=== PATIENT | female | born 1950 | race Caucasian/White ===

== ENCOUNTER → 2017-09-21 | Outpatient (CLI) | payer MEDICARE ==
[~2017-09-21] MED LIST: AMBIEN 10MG10 MG PO; AMBIEN 5MG TABLE5 MG PO; ARAVA 20MG TABL20 MG PO; ASPIRIN 32325 MG/TAB PO; ASPIRIN 81M81 MG/TA2 PO; B-121000 MCG PO; B12; COLACE 100100 MG/CAP PO; ESTRACE2 MG PO; FENTANYL 12MCG TD; FLAXSEED PO; FOLIC ACID0.8 MG PO; HYZAAR 50-12.1 UDTAB PO; IPRATROPIUM BROM3 M1 IH; LEVAQUIN 750MG750 M1 PO; LEXAPRO 10MG10 MG PO; LIQUID CALCIUM1 SG3 PO; MILLIPRED5 MG PO; MULTI VITAMINS1 TAB PO; MYRBETR25MG PO; NAMENDA XR 28MG PO; NATURAL FLAX1000 MG PO; NORCO 325 MG-51 TAB PO; PREDNISONE 5MG5 MG PO; PRIL40 PO; PRILOTC; RAZADYNE 4MG (FO4 MG PO; RECLAST5 MG/100 M IV; STOOL SOFTENER100 M2 PO; SUDAFED30 MG PO; TESSALON PERLE200 MG PO; VIT D; VITAMIN C500 MG PO; VITAMIN D 50,1.25 MG PO; VITAMIN D31000 I1 PO; XARELTO10 MG PO; ZANTAC 150MG T150 MG PO; ZITHROMAX 250M250 MG PO; ZITHROMAX500 M2 PO; ZOMETA4 MG/100 M; [UNRECOGNIZED DRUG - OTHER]; folic acid; mvi
== END ==
LOC: MC.RAD 09:00
DX: Z12.31 Encounter for screening mammogram for malignant neoplasm of breast (principal)

== ENCOUNTER → 2018-04-02 | Outpatient (CLI) | payer MEDICARE | LOC: COL.RAD 07:23 | DX: M51.16 Intervertebral disc disorders with radiculopathy, lumbar region (principal); M48.061 Spinal stenosis, lumbar region without neurogenic claudication ==

== ENCOUNTER → 2018-04-17 | Outpatient (CLI) | payer MEDICARE | LOC: MHCPAIN 13:08 | DX: G89.29 Other chronic pain (principal); M47.817 Spondylosis without myelopathy or radiculopathy, lumbosacral region; M54.16 Radiculopathy, lumbar region; M53.3 Sacrococcygeal disorders, not elsewhere classified; M48.061 Spinal stenosis, lumbar region without neurogenic claudication | CPT/HCPCS: G0463 ==

== ENCOUNTER → 2018-06-12 | Outpatient (CLI) | payer MEDICARE | LOC: MHCPAIN 11:04 | DX: G89.29 Other chronic pain (principal); M47.817 Spondylosis without myelopathy or radiculopathy, lumbosacral region; M54.16 Radiculopathy, lumbar region; M53.3 Sacrococcygeal disorders, not elsewhere classified; M47.814 Spondylosis without myelopathy or radiculopathy, thoracic region | CPT/HCPCS: G0463 ==

== ENCOUNTER → 2018-06-14 | Outpatient (CLI) | payer MEDICARE | LOC: MHCPAIN 10:27 | DX: M47.817 Spondylosis without myelopathy or radiculopathy, lumbosacral region (principal); M54.16 Radiculopathy, lumbar region | CPT/HCPCS: J1040; J2250; J3010; Q9967 ==

== ENCOUNTER → 2018-06-25 | Outpatient (CLI) | payer MEDICARE | LOC: MHCPAIN 11:22 | DX: G89.29 Other chronic pain (principal); M47.817 Spondylosis without myelopathy or radiculopathy, lumbosacral region; M54.16 Radiculopathy, lumbar region; M53.3 Sacrococcygeal disorders, not elsewhere classified; M48.061 Spinal stenosis, lumbar region without neurogenic claudication | CPT/HCPCS: G0463 ==

== ENCOUNTER → 2018-08-07 | Outpatient (CLI) | payer MEDICARE | LOC: MHCPAIN 09:59 | DX: G89.29 Other chronic pain (principal); M47.817 Spondylosis without myelopathy or radiculopathy, lumbosacral region; M54.16 Radiculopathy, lumbar region; M53.3 Sacrococcygeal disorders, not elsewhere classified; M48.061 Spinal stenosis, lumbar region without neurogenic claudication | CPT/HCPCS: G0463 ==

== ENCOUNTER 2018-08-14 13:30 | Outpatient (RCR) | payer MEDICARE | END 2018-08-22 09:47 | disposition home or self-care (01) | LOC: WSPT 13:30 | DX: M51.16 Intervertebral disc disorders with radiculopathy, lumbar region (principal); M41.56 Other secondary scoliosis, lumbar region; M48.062 Spinal stenosis, lumbar region with neurogenic claudication; M47.816 Spondylosis without myelopathy or radiculopathy, lumbar region; M43.16 Spondylolisthesis, lumbar region; Z79.891 Long term (current) use of opiate analgesic; Z79.899 Other long term (current) drug therapy; F17.210 Nicotine dependence, cigarettes, uncomplicated | CPT/HCPCS: G8978-GP; G8979-GP ==

== ENCOUNTER → 2018-10-10 | Outpatient (CLI) | payer MEDICARE ==
[~2018-10-10] MED LIST changes: +FLOMAX 0.40.4 MG/CAP PO; +FORTEO250 MCG/ML; +HYSINGLA; +LYRICA 150MG C150 MG PO; +MACRODANTIN100 PO; +NORCO 325 MG-101 TAB PO; +OMNICEF 300MG300 MG PO; +PERCOCET 325 MG1 TA2 PO; +TOFRANIL 10MG T10 MG PO; +XELJANZ XR11 MG PO
== END ==
LOC: MHCPAIN 13:38
DX: G89.29 Other chronic pain (principal); M47.817 Spondylosis without myelopathy or radiculopathy, lumbosacral region; M54.16 Radiculopathy, lumbar region; M53.3 Sacrococcygeal disorders, not elsewhere classified
CPT/HCPCS: G0463

== ENCOUNTER 2018-11-20 19:11 | Inpatient (IN) | payer MEDICARE ==
[~2018-11-20] VITALS: Ht 160 cm; Wt 66.8 kg
[2018-11-20 20:13] LABS: BASO # 0.1 (0.0-0.2); BASO % 0.6 % (0.0-2.0); EOS # 0.1 (0.0-0.7); EOS % 1.1 % (0-4.0); GRAN # 10.1 (1.4-6.5); GRAN % 76.5 % (42.2-75.2); HEMATOCRIT 40.6 % (37.0-47.0); HEMOGLOBIN 12.8 g/dl (12.5-16.0); LYMPH # 1.1 (1.2-3.4); LYMPH % 8.3 % (20.0-51.0); MEAN CELL VOLUME 98 fl (80.0-100.0); MEAN CORPUSCULAR HEMOGLOBIN 31 pg (27.0-31.0); MEAN CORPUSCULAR HGB CONC 32 g/dl (33.0-37.0); MEAN PLATELET VOLUME 11.1 fl (7.4-10.4); MONO # 1.5 (0.1-0.6); MONO % 11.4 % (1.7-9.3); PLATELET COUNT 265 K/mm3 (130-400); RED BLOOD COUNT 4.16 M/mm3 (4.10-5.30); REDCELL DISTRIBUTION WIDTH-CV 16.5 % (11.5-14.5)
[2018-11-20 20:25] LABS: COLLECTION METHOD CATHETER
[2018-11-20 20:32] LABS: INR 1.2 (0.8-3.0)
[2018-11-20 20:59] LABS: MUCOUS Present /lpf; PH 5 (5-8); URINE APPEARANCE Hazy; URINE BACTERIA None Seen /hpf; URINE BILIRUBIN Negative (NEGATIVE); URINE BLOOD Negative (NEGATIVE); URINE COLOR Amber; URINE GLUCOSE Negative (NEGATIVE); URINE KETONE Trace (NEGATIVE); URINE LEUKOCYTE ESTERASE Negative (NEGATIVE); URINE NITRATE Negative (NEGATIVE); URINE PROTEIN(semi-quant) Negative (NEGATIVE); URINE RBC 0-2 /hpf
[2018-11-20 21:14] LABS: ALANINE AMINOTRANSFERASE 22 U/L (9-52); ALBUMIN 3.4 gm/dL (3.5-5.0); ALKALINE PHOSPHATASE 101 U/L (50-136); ANION GAP 4 mmol/L (7-16); AST,SGOT 19 U/L (15-37); BILIRUBIN,TOTAL 0.8 mg/dL (0.0-1.0); BLOOD UREA NITROGEN 12 mg/dL (7-17); CALCIUM 9.2 mg/dL (8.4-10.2); CARBON DIOXIDE 28 mmol/L (22-30); CHLORIDE 104 mmol/L (98-107); CREATININE, serum 0.66 mg/dL (0.52-1.25); GLUCOSE 117 mg/dL (74-106); SODIUM 136 mmol/L (137-145); TOTAL PROTEIN 6.6 gm/dL (6.4-8.2)
[2018-11-20 21:19] LABS: POTASSIUM 2.7 mmol/L (3.4-5.0)
[2018-11-20 21:32] LABS: TROPONIN-I < 0.012 ng/mL (0.000-0.035)
[2018-11-20] MEDS ORDERED: CYMBALTA 60MG60 MG PO (22:40)
[2018-11-20] MEDS ORDERED: FORTEO250 MCG/ML (22:41)
[2018-11-20] MEDS ORDERED: ARAVA 20MG TABL20 MG PO (22:41)
[2018-11-21 00:05] VITALS: BP 146/76; PULSE 104; TEMP 98.3
--- NOTE | 2018-11-21 00:08 | NUR ---
Patient arrived to medical floor at aproximately 2350.
--- NOTE | 2018-11-21 00:50 | NUR ---
Patient assessed at this time. Spouse is at bedside and helped answer all questions. Denies having SOB and dyspnea at this time. On oxygen at 2 L/min via NC. LS CTA. Respirations are even and unlabored. Heart with regular rate and rhythm. Bowel sounds active x 4. Alert and oriented with confusion. Forgetful. Does have diagnosis of dementia. Patient had cataract surgery on 11/20/18 to right eye. Pupils are round. Did not check for accomodation to light due to sensitivity of eyes. Has been wearing sunglasses. Has an eye patch that patient is supposed to wear, but is not keeping it on. No edema noted. Left leg is slightly bigger than right leg, but reports this is normal for patient.
[2018-11-21 03:09] VITALS: BP 152/62; PULSE 100; TEMP 99.9
[2018-11-21 07:25] LABS: HEMOGLOBIN 11.2 g/dl (12.5-16.0); MEAN CELL VOLUME 98 fl (80.0-100.0); MEAN CORPUSCULAR HEMOGLOBIN 31 pg (27.0-31.0); MEAN CORPUSCULAR HGB CONC 31 g/dl (33.0-37.0); PLATELET COUNT 242 K/mm3 (130-400); RED BLOOD COUNT 3.65 M/mm3 (4.10-5.30); REDCELL DISTRIBUTION WIDTH-CV 16.3 % (11.5-14.5)
[2018-11-21 07:26] LABS: HEMATOCRIT 35.9 % (37.0-47.0)
[2018-11-21 07:28] VITALS: BP 127/71; PULSE 114; TEMP 98.8
--- NOTE | 2018-11-21 07:28 | NUR ---
Patient has been assisted to the bathroom three times during the night. Bedside commode used with two assist with the use of gait belt. has remained at bedside throughout the night. Patient has been wearing her black glasses for optometry due to her pulling off her eyepatch that she is supposed to wear to right eye from cataract surgery. Patient continues on potassium protocol. In bed at this time. Oxygen on at 2 L/min via NC. Call light is within reach.
[2018-11-21 07:51] LABS: ALANINE AMINOTRANSFERASE 19 U/L (9-52); ALBUMIN 3.1 gm/dL (3.5-5.0); ALKALINE PHOSPHATASE 95 U/L (50-136); ANION GAP 2 mmol/L (7-16); AST,SGOT 27 U/L (15-37); BILIRUBIN,TOTAL 0.9 mg/dL (0.0-1.0); BLOOD UREA NITROGEN 10 mg/dL (7-17); CALCIUM 8.5 mg/dL (8.4-10.2); CARBON DIOXIDE 29 mmol/L (22-30); CHLORIDE 105 mmol/L (98-107); CREATININE, serum 0.48 mg/dL (0.52-1.25); GLUCOSE 107 mg/dL (74-106); POTASSIUM 4.1 mmol/L (3.4-5.0); SODIUM 136 mmol/L (137-145); TOTAL PROTEIN 6.4 gm/dL (6.4-8.2)
[2018-11-21 08:03] LABS: TROPONIN-I < 0.012 ng/mL (0.000-0.035)
[2018-11-21 09:42] LABS: BAND 19 % (0-10); LYMPHOCYTE 19 % (20.0-51.0); NEUTROPHILS 50 % (42.0-75.2)
[2018-11-21 09:43] LABS: ANISOCYTOSIS 1+; PLATELET ESTIMATE NORMAL (NORMAL)
--- NOTE | 2018-11-21 10:01 | NUR ---
Pt is awake and alert to self. She was unable to tell RN the date/year/president. She reorients easily. She is unable to rate pain on numeric scale but appears to be comfortable and in no distress. Pt takes all AM medications whole, in applesauce without difficulty. IVF are infusing without difficulty. at bedside. Bed alarm on.
[2018-11-21 11:39] VITALS: BP 113/67; PULSE 105; TEMP 98
--- NOTE | 2018-11-21 14:32 | NUR ---
SW and SW student attended clinical rounding and met with patient to discuss discharge planning. Patient lives with her [place] in [place]. Her PCP is Dr sandhu and she obtains her medications at [facility]. Patient has a DPOA on Chart and is Jehovahs witness which her wanted to make sure was noted. Patient plans on dc home with with no unmet dc needs. SW will continue to follow.
[2018-11-21 15:34] VITALS: BP 128/69; PULSE 88; TEMP 98.2
--- NOTE | 2018-11-21 18:05 | NUR ---
Pt has had an overall uneventful shift. Pt continues to deny pain, appears to be comfortable and not in any acute distress.
[2018-11-21 20:53] VITALS: BP 164/77; PULSE 103; TEMP 97.5
--- NOTE | 2018-11-21 21:45 | NUR ---
PT RESTING IN BED. ALERT AND ORIENTED TO SELF NOT PLACE OR SITUATION. PT WEARING POST PROCEDURE GLASSESS. NO PAIN. C/O SOA. SAT 95% ON 2L. NO NEEDS AT THIS TIME. AT BEDSIDE.
[2018-11-22] VITALS (7 sets, daily range): BP systolic 113–148; BP diastolic 71–99; PULSE 70–137; TEMP 97.5–98.9
--- NOTE | 2018-11-22 04:31 | NUR ---
pt had an uneventful night. slept most of the night with at bedside. K+3.9. on 2L o2 sat 95%. does not wear O2 at home. no pain. no needs at this time. call light in reach
[2018-11-22 06:27] LABS: HEMOGLOBIN 10.8 g/dl (12.5-16.0); MEAN CELL VOLUME 99 fl (80.0-100.0); MEAN CORPUSCULAR HEMOGLOBIN 31 pg (27.0-31.0); MEAN CORPUSCULAR HGB CONC 31 g/dl (33.0-37.0); MEAN PLATELET VOLUME 11.7 fl (7.4-10.4); PLATELET COUNT 246 K/mm3 (130-400); RED BLOOD COUNT 3.51 M/mm3 (4.10-5.30); REDCELL DISTRIBUTION WIDTH-CV 16.4 % (11.5-14.5)
[2018-11-22 06:29] LABS: INR 1.5 (0.8-3.0); PROTHROMBIN TIME 16.7 SECONDS (9.7-12.8)
[2018-11-22 06:32] LABS: HEMATOCRIT 34.8 % (37.0-47.0)
[2018-11-22 06:44] LABS: CALCIUM 8.6 mg/dL (8.4-10.2); CREATININE, serum 0.54 mg/dL (0.52-1.25); MAGNESIUM 2.1 mg/dL (1.6-2.3); POTASSIUM 3.7 mmol/L (3.4-5.0)
[2018-11-22 07:13] LABS: ANISOCYTOSIS 1+; BAND 28 % (0-10); EOSINOPHIL 2 % (0-4); LYMPHOCYTE 22 % (20.0-51.0); NEUTROPHILS 42 % (42.0-75.2); PLATELET ESTIMATE NORMAL (NORMAL)
--- NOTE | 2018-11-22 07:15 | NUR ---
Report recieved from KAROLINE Storey Pt bent over in bed rocking complaining of nausea, denies pain. Pt agreeable to ordering breakfast "that will probably help" with the nausea. Pt experiencing photophobia - wearing large sun shades in the room, requesting eye drops (provided). at bedside helping pt with items in room and ordering breakfast. Pt appears to be in less distress after introductions and assessment.
--- NOTE | 2018-11-22 07:29 | NUR ---
report given to KAROLINE Estrella. pt reports no needs at this time.
--- NOTE | 2018-11-22 23:44 | NUR ---
Completed medication administration with apple sauce and assessment; PT tolerated all cares well; PT denied further needs or discomforts at time of assessment; Lungs have diminished bilateral bases with RLL crackles; Irregular HR; CXR negative for irregular findings; Continued post cataract GTT x3 (in room); No further needs at time of exit; call light placed within reach; Will continue to monitor; spouse in room for night. CDA
--- NOTE | 2018-11-23 02:39 | NUR ---
PT resting well in bed with resting in the recliner at the end of the bed; No further needs assessed at this time during rounds; Continues to rest easy on 2L NC and no need for further pain management at this time; Will continue to monitor. CDA
[2018-11-23 04:16] VITALS: BP 174/84; PULSE 113; TEMP 98.8
--- NOTE | 2018-11-23 05:03 | NUR ---
Spoke with YVONNE Cook about reported acute changes and VS; no new orders or medications at this time. Will continue to monitor. CDA
[2018-11-23 06:11] LABS: BASO % 0.3 % (0.0-2.0); EOS # 0.2 (0.0-0.7); EOS % 1.5 % (0-4.0); GRAN # 8.8 (1.4-6.5); GRAN % 74.8 % (42.2-75.2); HEMOGLOBIN 10.4 g/dl (12.5-16.0); LYMPH # 1.3 (1.2-3.4); LYMPH % 11.1 % (20.0-51.0); MEAN CELL VOLUME 100 fl (80.0-100.0); MEAN CORPUSCULAR HEMOGLOBIN 31 pg (27.0-31.0); MEAN CORPUSCULAR HGB CONC 31 g/dl (33.0-37.0); MONO # 1.4 (0.1-0.6); MONO % 11.5 % (1.7-9.3); PLATELET COUNT 234 K/mm3 (130-400); RED BLOOD COUNT 3.37 M/mm3 (4.10-5.30); REDCELL DISTRIBUTION WIDTH-CV 16.4 % (11.5-14.5)
[2018-11-23 06:13] LABS: INR 2.5 (0.8-3.0); PROTHROMBIN TIME 28.8 SECONDS (9.7-12.8)
[2018-11-23 06:21] LABS: CALCIUM 8.6 mg/dL (8.4-10.2); CREATININE, serum 0.55 mg/dL (0.52-1.25); POTASSIUM 3.7 mmol/L (3.4-5.0)
[2018-11-23 06:22] LABS: HEMATOCRIT 33.7 % (37.0-47.0)
--- NOTE | 2018-11-23 07:07 | NUR ---
Report given to KAROLINE Philip. CDA
[2018-11-23 07:21] VITALS: BP 126/80; PULSE 114; TEMP 98.4
--- NOTE | 2018-11-23 08:00 | NUR ---
PT ALERT AND ORIENTED TO SELF AND LOCATION. PT SLIGHLTY CONFUSED WHEN ASKED COMPLICATED QUESTIONS. TYPICALLY ANSWERS FOR . PT ABLE TO FOLLOW COMMANDS WITHOUT DIFFICULTY. PT NEEDS REDIRECTION AT TIMES ESPECIALLY WITH AMBULATION.
--- NOTE | 2018-11-23 08:00 | NUR ---
PT DOES NOT TYPICALLY WEAR O2 AT HOME. ATTEMPTED TO WEAN PT'S O2 DOWN TO 1L BUT O2 SAT DECREASED TO 90-91%. ORDERS STATE TO MAINTAIN O2 SAT >92%. PT RESUMED ON 2L NC. WILL CONTINUE TO MONITOR.
--- NOTE | 2018-11-23 09:00 | NUR ---
ASSISTED PATIENT TO RECLINER CHAIR WITH 2 ASSIST AND GAIT BELT. 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 PT VERY WEAK AND NEEDS ASSISTANCE WITH DIRECTION.
[2018-11-23 11:59] VITALS: BP 123/66; PULSE 101; TEMP 98.4
--- NOTE | 2018-11-23 13:49 | NUR ---
SW met with patient and . Patient is very weak and will need shelter. Patient has been to [facility] multiple times in the past and would like to go there. Choice form obtained for #1 [facility] and #2 [facility]. Referrals sent to both. patient to discharge tomorrow. SW will continue to follow.
--- NOTE | 2018-11-23 14:01 | NUR ---
PT RESTING IN RECLINER CHAIR WITH AT BEDSIDE. PT DENIES ANY NEEDS AT THIS TIME.
--- NOTE | 2018-11-23 15:32 | NUR ---
Bridget, at [facility], reports that they can accept the patient for a skilled stay. SW to inform the patient's and continue to follow.
--- NOTE | 2018-11-23 15:49 | NUR ---
PT RESTING IN CHAIR. FAMILY AT BEDSIDE. PT DENIES ANY NEEDS.
--- NOTE | 2018-11-23 16:23 | NUR ---
Juvencio, at [facility], reports that they declined the patient.
[2018-11-23 16:28] VITALS: BP 122/67; PULSE 91; TEMP 96.9
--- NOTE | 2018-11-23 16:35 | NUR ---
RECEIVED REPORT FROM KAROLINE FAUSTIN.PATIENT SITTING UP IN RECLINER.FAMILY AT BEDSIDE.PATIENT HAS GLASSES ON FROM PREVIOUS CATARACTS SURGERY.DENIES ANY NEEDS AT THIS TIME.CALL LIGHT IN REACH.
--- NOTE | 2018-11-23 18:19 | NUR ---
PT SITTING UP IN RECLINER.ALL EYE DROPS GIVEN.CONTINUES TO WEAR DARK SHADE GLASSES POST CATARACTS.REQUESTED PERCOCET FOR PAIN.OXYGEN AT 2L/NC.PT IS VERY WEAK,REQUIRES ASSIST X2 WITH TRANSFERS.WILL CONTINUE TO MONITOR.
[2018-11-23 19:26] VITALS: BP 119/63; PULSE 99; TEMP 97.5
--- NOTE | 2018-11-23 20:59 | NUR ---
Pt in bed resting, no C/O pain at this time, shift assessments complete, left Pt call light in reach, bed in lowest position.
[2018-11-24 00:31] VITALS: BP 135/81; PULSE 78; TEMP 97.5
[2018-11-24 04:20] VITALS: BP 147/76; PULSE 82; TEMP 97.4
--- NOTE | 2018-11-24 05:43 | NUR ---
Pt slept well during the night, no C/O pain. VS have remained stable.
--- NOTE | 2018-11-24 07:00 | NUR ---
received report from KAROLINE Lezama.patient laying in bed with at bedside.
[2018-11-24 07:46] VITALS: BP 159/85; PULSE 93; TEMP 97.8
[2018-11-24 08:36] LABS: BASO % 0.3 % (0.0-2.0); EOS # 0.2 (0.0-0.7); EOS % 1.6 % (0-4.0); GRAN # 7.6 (1.4-6.5); GRAN % 73.4 % (42.2-75.2); LYMPH # 1.3 (1.2-3.4); LYMPH % 12.1 % (20.0-51.0); MEAN CELL VOLUME 99 fl (80.0-100.0); MEAN CORPUSCULAR HGB CONC 31 g/dl (33.0-37.0); MEAN PLATELET VOLUME 11.4 fl (7.4-10.4); MONO # 1.3 (0.1-0.6); PLATELET COUNT 271 K/mm3 (130-400); RED BLOOD COUNT 3.21 M/mm3 (4.10-5.30); REDCELL DISTRIBUTION WIDTH-CV 16.1 % (11.5-14.5)
[2018-11-24 08:42] LABS: HEMATOCRIT 31.9 % (37.0-47.0); HEMOGLOBIN 9.8 g/dl (12.5-16.0); MEAN CORPUSCULAR HEMOGLOBIN 31 pg (27.0-31.0)
[2018-11-24 08:43] LABS: CALCIUM 8.5 mg/dL (8.4-10.2); CREATININE, serum 0.51 mg/dL (0.52-1.25); POTASSIUM 3.3 mmol/L (3.4-5.0)
[2018-11-24 09:02] LABS: INR 5.5 (0.8-3.0); PROTHROMBIN TIME 63.2 SECONDS (9.7-12.8)
--- NOTE | 2018-11-24 09:09 | NUR ---
critical labs of INR 5.5 and PT 63.2 called to LAZARA David.
--- NOTE | 2018-11-24 09:15 | NUR ---
Assessment complete.patient awake,oriented to self and place.prn percocet given for c/o generalised pain which she rates as a 8/10.all other meds given.oxygen at 2l/NC and sats at 90%.will continue to monitor.call light in reach
[2018-11-24 12:13] VITALS: BP 122/64; PULSE 97; TEMP 98.2
--- NOTE | 2018-11-24 13:57 | NUR ---
PT SITTING UP EATING LUNCH.TOLERATES MEDS WELL.NO NEEDS VOICED.
[2018-11-24 14:49] VITALS: BP 121/73; PULSE 111; TEMP 97.9
--- NOTE | 2018-11-24 18:29 | NUR ---
PT RESTING IN BED AT THIS TIME.DAUGHTER AT BEDSIDE.PERCOCET GIVEN FOR PAIN.PT NOW ON ONE EYE DROP FOR PRIOR CATARACTS SURGERY.INTAKE HAS IMPROVED.PATIENT AND UPDATED ON PLAN TO RECHECK INR TOMORROW.WILL CONTINUE TO MONITOR.CALL LIGHT IN REACH
--- NOTE | 2018-11-24 19:16 | NUR ---
REPORT GIVEN TO KAROLINE GLASER.
[2018-11-24 19:24] VITALS: BP 140/78; PULSE 108; TEMP 98.3
--- NOTE | 2018-11-24 22:00 | NUR ---
PT HAD BEEN UP TO THE BEDSIDE COMMODE X2 TO VOID AT THIS TIME. URINE HAS A STONG SMELL TO IT. URGENCY NOTED WELL. PREVIOUS UA WAS OBTIANED UPON ADMISSION. NO C/O BURING WITH URINATION. PT DOES HAVE C/O PAIN WITH TRANSFURING AND PRN PAIN MED GIVEN ORDERED. C/O PAIN IN RT LEG, AND BACK. NO OTHER ISSUES OR CONSERNS VOICED AT THIS TIME.
--- NOTE | 2018-11-24 23:30 | NUR ---
PT REMAINS AT BEDSIDE. REPORTS TO THIS NURSE THAT PT HAD TAKEN OFF O2 AND WOULDNT PUT IT BACK ON THIS NURES OBTAINED O2 SAT OF 90% RA AT THIS TIME. WILL REATTEMPT 02 AT A LATER HOUR.
[2018-11-25] VITALS (7 sets, daily range): BP systolic 129–145; BP diastolic 66–121; PULSE 99–128; TEMP 97.3–98.4
--- NOTE | 2018-11-25 04:28 | NUR ---
PT WAS SITTING FORWARD IN BED, PT REQUESTED FOR HER TO GET PAIN MEDICATION. PT STATED THAT HE LEG/ HIP HURT AT THIS TIME. PAIN MED GIVEN.
--- NOTE | 2018-11-25 04:30 | NUR ---
PT REMAINING RESTLESS, WEARING O2 AT THIS TIME AND SATS BACK UP TO 95% ON 1L.
[2018-11-25 09:04] LABS: MEAN CELL VOLUME 99 fl (80.0-100.0); MEAN CORPUSCULAR HGB CONC 31 g/dl (33.0-37.0); MEAN PLATELET VOLUME 11.6 fl (7.4-10.4); PLATELET COUNT 308 K/mm3 (130-400); RED BLOOD COUNT 2.91 M/mm3 (4.10-5.30); REDCELL DISTRIBUTION WIDTH-CV 16.3 % (11.5-14.5)
[2018-11-25 09:13] LABS: HEMATOCRIT 28.9 % (37.0-47.0); HEMOGLOBIN 8.9 g/dl (12.5-16.0); MEAN CORPUSCULAR HEMOGLOBIN 31 pg (27.0-31.0)
[2018-11-25 09:19] LABS: INR 6.3 (0.8-3.0); PROTHROMBIN TIME 71.3 SECONDS (9.7-12.8)
--- NOTE | 2018-11-25 09:32 | NUR ---
Assessmnet complete.patient awake,oriented to self.c/o of generalised pain and mostly to right side.prn oxycodone given.all meds given.oxygen at 2l/nc.HR in 110s.INT patent. at bedside.denies any needs at this time.
--- NOTE | 2018-11-25 09:37 | NUR ---
INR was 6.3. notified.
[2018-11-25 09:49] LABS: CALCIUM 8.9 mg/dL (8.4-10.2); CREATININE, serum 0.61 mg/dL (0.52-1.25); POTASSIUM 3.3 mmol/L (3.4-5.0)
[2018-11-25 13:42] LABS: ANISOCYTOSIS 1+; BAND 2 % (0-10); HYPOCHROMIA 1+; LYMPHOCYTE 19 % (20.0-51.0); NEUTROPHILS 67 % (42.0-75.2); PLATELET ESTIMATE NORMAL (NORMAL)
--- NOTE | 2018-11-25 18:15 | NUR ---
PATIENT RESTING IN BED.ALL MEDS GIVEN.CONTINUES TO C/O GENERALIZED PAIN.PRN PERCOCET GIVEN.PATIENT DENIES ANY NEEDS AT THIS TIME.CALL LIGHT IN REACH
--- NOTE | 2018-11-25 18:28 | NUR ---
Pt remains on oxygen at 2l/nc.sats above 90%.VSS.pt is now on scheduled potassium effer.education provided on this and encoraged patient to increase intake of fluids.no needs voiced.call light in reach
--- NOTE | 2018-11-25 19:01 | NUR ---
report given to KAROLINE Lezama.
--- NOTE | 2018-11-25 20:45 | NUR ---
Pt resting in bed napping, easily aroused from sleep, shows signs of pain, medication administered, family in room. Shift assessment complete, left Pt call light in reach, bed in lowest position.
--- NOTE | 2018-11-26 05:11 | NUR ---
Pt slept well during the night, family was in room with Pt overnight, VS have remained stable, Pt did have some C/O pain early in the shift but has been sleeping since given medication.
[2018-11-26 05:12] VITALS: BP 146/81; PULSE 115
[2018-11-26 06:30] LABS: HEMATOCRIT 24.6 % (37.0-47.0); HEMOGLOBIN 7.5 g/dl (12.5-16.0)
[2018-11-26 07:18] LABS: INR 7.9 (0.8-3.0); PROTHROMBIN TIME 90.5 SECONDS (9.7-12.8)
[2018-11-26 07:49] LABS: IRON,SERUM 71 ug/dL (35-150)
[2018-11-26 07:58] LABS: TOTAL IRON BINDING CAPACITY 264 ug/dL (265-497)
[2018-11-26 08:25] LABS: FERRITIN 474 ng/mL (11-264)
--- NOTE | 2018-11-26 09:22 | NUR ---
Patient resting in bed with at bedside. Reported to Joann Sutton APRN notified of PT/INR elevation. New orders recieved. Noted that patient is very pale in color this AM. reports that she is quieter and less responsive this AM. She is alert to self but unable to tell this nurse time and place. Patient checked for excessive bruising with none noted. Per there has been no bloody stools or urine that was noted. Will continue to monitor for any changes in patient status
[2018-11-26 09:25] VITALS: BP 111/60; PULSE 111; TEMP 97.4
--- NOTE | 2018-11-26 11:00 | NUR ---
Noted patient to have a black/foul smelling stool at this time. YVONNE David notified of this finding. New order for Stool for Occult blood. Stool collected and sent to lab at this time. Patient denies any pain/discomfort. AM cares done and up to chair. at bedside
[2018-11-26 11:41] VITALS: BP 132/69; PULSE 110; TEMP 99.4
[2018-11-26 14:40] LABS: FOLATE (FOLIC ACID) 2.8 ng/mL (7.0-31.4)
--- NOTE | 2018-11-26 15:15 | NUR ---
Call placed to Dr. Murillo regarding consult secondary to + stool for occult blood. Patient denies any needs at this time.
--- NOTE | 2018-11-26 16:00 | NUR ---
Patient c/o pain in bilateral lower extremities. Percocet given for c/o discomfort. Patient repositioned in bed. No other needs at this time. Patient has yet to void this shift. Offered to take patient to the bathroom. reports she had a large void this morning before shift change. Will continue to monitor
--- NOTE | 2018-11-26 16:31 | NUR ---
motion picture set worker attended clinical rounds and met with patient and spouse to confirm discharge plan. Patient and spouse are agreeable with discharge plan to skilled care at [facility] upon discharge. Worker faxed clinical updates to [facility].
[2018-11-26 16:54] VITALS: BP 109/62; PULSE 105; TEMP 97.9
--- NOTE | 2018-11-26 18:55 | NUR ---
Family in room. Patient denies any needs at this time. Supper ordered. Still has not voided will pass onto next shift
--- NOTE | 2018-11-26 21:00 | NUR ---
PT HAD A LARGE BM THIS HS AND VOID. BM WAS BLACK WITH A GREEN TING TO IT. PT HAS NOTED PALLOR IN APPERANCE. PT HAS ONLY VOIDED ONCE THIS DAY. PT HAD C/O PAIN TO RT LOWER EXTREM WITH TRANSFER, ADMINSTERED PRN PAIN MED ALONG WITH HS MEDS. NO OTHER ISSUES OR CONSERNS VOICED.
[2018-11-26 21:42] VITALS: BP 104/63; PULSE 95; TEMP 98.8
[2018-11-27] VITALS (11 sets, daily range): BP systolic 11–134; BP diastolic 46–69; PULSE 64–102; TEMP 97.7–98.9
--- NOTE | 2018-11-27 06:00 | NUR ---
PT APPEARED TO HAVE SLEPT WELL OVER NOC. NO ISSUES OR CONSERNS VOICED OVER NOC. NO FURTHER C/O PAIN. REMAINED AT BEDSIDE.
[2018-11-27 08:12] LABS: HEMATOCRIT 19.9 % (37.0-47.0); HEMOGLOBIN 6.2 g/dl (12.5-16.0)
[2018-11-27 08:32] LABS: INR 1.5 (0.8-3.0); PROTHROMBIN TIME 16.8 SECONDS (9.7-12.8)
--- NOTE | 2018-11-27 09:24 | NUR ---
SW attended clinical rounds. Patient will get an EGD today. SW then met with patient and . Patient's confirmed with SW that the discharge plan is to go to [facility]. SW will continue to follow.
--- NOTE | 2018-11-27 10:03 | NUR ---
PT HAD SMALL BLACK, TARRY STOOL NOTED.
--- NOTE | 2018-11-27 12:00 | NUR ---
CONSENT FOR SURGERY OBTAINED FROM AND PLACED ON CHART.
--- NOTE | 2018-11-27 12:06 | NUR ---
First visit from the dean of education. No needs right now.
--- NOTE | 2018-11-27 15:41 | NUR ---
PT TRANSFERRED INTO ROOM 355 VIA WHEELCHAIR BY LETICIA RAMEY. PT'S FAMILY AT BEDSIDE. PT AMBULATED WITHOUT DIFFICULTY TO CHAIR. PT HAS BROWN IN PLACE AND LEFT IJ TLC. PT DENIES ANY NEEDS AT THIS TIME. CALL LIGHT PLACED IN REACH.
--- NOTE | 2018-11-27 16:14 | NUR ---
PT READY FOR EGD. STRAIGHT TUBING HUNG WITH NS AT 30ML/HR PER ORDER
--- NOTE | 2018-11-27 16:49 | NUR ---
PT TAKEN VIA BED DOWN TO ENDO FOR EGD BY ENDO RN.
--- NOTE | 2018-11-27 18:05 | NUR ---
PT RETURNED FROM ENDOSCOPY VIA BED. PT AWAKE, ALERT AND ORIENTED AT BASELINE. VITAL SIGNS OBTAINED. POST PROCEDURE CHECKS INITIATED. AT BEDSIDE.
--- NOTE | 2018-11-27 18:23 | NUR ---
AWAITING FOR PATIENT TO RECOVER FULLY FROM EGD TO INIITATE BECKY PREP
--- NOTE | 2018-11-27 18:23 | NUR ---
PT RESCHEDULED FOR COLONOSCOPY TOMORROW AROUND 1320 INSTEAD OF AFTER 1600
--- NOTE | 2018-11-28 01:04 | NUR ---
Completed medication administration and assessment; Initiated colon prep for scheduled colonoscopy 11/28/18; PT reported BLE pain; A&C intermittent reorientation during assessment needed to situation and care needs; PT pale in color with decreased HGB; PT continues 1L O2 via NC; No edema during assessment; flat and soft ABD; BS active x4; No further assessed or verbalized needs at time of exit; PT assisted to a comfortable position in bed with the call light within reach; Will continue to monitor. CDA
--- NOTE | 2018-11-28 01:26 | NUR ---
PT unable to tolerated colon prep per verbal report after multiple encouragement attempts by this nurse and ; present in room. Hospitalist, YVONNE Resendez notified; No further action will be taken tonight; Continue to encourage if possible. CDA
[2018-11-28 04:14] VITALS: BP 126/59; PULSE 102; TEMP 98.5
--- NOTE | 2018-11-28 04:40 | NUR ---
PT lying in supine position in bed intermittently resting; PT unable to complete colon prep; PT denies further needs or concerns at time of rounds; resting in recliner in room; on-call hopsitalist notified of prep; PT resting in comfortable position in bed with call light within reach; Will continue to monitor. CDA
--- NOTE | 2018-11-28 07:00 | NUR ---
Report given to KAROLINE Cruz. CDA
[2018-11-28 07:14] LABS: INR 1.3 (0.8-3.0); PROTHROMBIN TIME 14.8 SECONDS (9.7-12.8)
[2018-11-28 07:26] LABS: HEMATOCRIT 20.1 % (37.0-47.0); HEMOGLOBIN 6.2 g/dl (12.5-16.0)
[2018-11-28 07:27] VITALS: BP 132/64; PULSE 94; TEMP 98.4
--- NOTE | 2018-11-28 07:51 | NUR ---
I have notified of patients inability to tolerate bowel prep overnight, informed him that she is unable to drink the Golytley and this makes her gag, notified that she had no BM during the night and that her Hemaglobin this morning is unchanged from yesterday at 6.2
--- NOTE | 2018-11-28 09:24 | NUR ---
Assessment completed, alert/ partially oriented but forgetful, vital signs stable, reports "bad pain in legs", I have given 1 norco tablet per husbands request, patient was unable to tolerate bowel prep last night so i have notified and we will try a different Prep today and hopefully scop 11/29/18 instead / I have discussed this plan of care with the patient and who agree with plan, hemaglobin is unchanged at 6.2 / physician notified, heart RRR, lungs CTA, she did have small hard formed dark BM this morning/ abdomen is soft and non-tender, no overt bleeding noted otherwise, will continue to monitor
[2018-11-28 11:47] VITALS: BP 119/57; PULSE 94; TEMP 97.7
[2018-11-28 15:44] VITALS: BP 119/63; PULSE 91; TEMP 97.8
[2018-11-28 20:28] VITALS: BP 112/65; PULSE 96; TEMP 97.7
--- NOTE | 2018-11-28 22:44 | NUR ---
Completed assessment and medication administration; PT tolerating colon prep slowly; PT tolerated evening medication well; PT Alert and confused, lungs CTAB with mildly diminished bases, PT AMB slowly x2 assist with walker and redirection, continues use of bedside commode, BS active x4; PT denies pain or discomfort at time of assessment; PT assisted to comfortable position in recliner at time of exit with call light in reach; no further assessment needs at time of exit; Will continue to monitor. CDA
[2018-11-29] VITALS (10 sets, daily range): BP systolic 110–146; BP diastolic 48–77; PULSE 61–100; TEMP 97.4–98.4
--- NOTE | 2018-11-29 04:06 | NUR ---
PT resting well at time of rounds without further needs or concerns; Spouse resting in room; Continues colon prep for possible colonoscopy in AM; PRN Percocet provided for 5/10 BLE pain; Will continue to monitor. CDA
[2018-11-29 06:25] LABS: MEAN CELL VOLUME 98 fl (80.0-100.0); MEAN CORPUSCULAR HGB CONC 31 g/dl (33.0-37.0); MEAN PLATELET VOLUME 10.9 fl (7.4-10.4); PLATELET COUNT 357 K/mm3 (130-400); RED BLOOD COUNT 1.86 M/mm3 (4.10-5.30); REDCELL DISTRIBUTION WIDTH-CV 16.7 % (11.5-14.5)
[2018-11-29 06:51] LABS: HEMATOCRIT 18.3 % (37.0-47.0); HEMOGLOBIN 5.7 g/dl (12.5-16.0); MEAN CORPUSCULAR HEMOGLOBIN 31 pg (27.0-31.0)
[2018-11-29 06:54] LABS: CALCIUM 8.2 mg/dL (8.4-10.2); CREATININE, serum 0.58 mg/dL (0.52-1.25)
--- NOTE | 2018-11-29 07:08 | NUR ---
Report given to KAROLINE Snow. CDA
[2018-11-29 07:36] LABS: POTASSIUM 2.9 mmol/L (3.4-5.0)
--- NOTE | 2018-11-29 08:13 | NUR ---
Pt is resting in bed, arouses easily. She is alert to herself, but disoriented to place, time or situation. requested PRN percocet for chronic pain. Medications given, otherwise NPO. Pt remains on 1L O2 per NC, resp. are even and unlabored. Saline lock to left wrist is free of complications. at bedside, updated on plan of care.
[2018-11-29 09:20] LABS: BAND 6 % (0-10); EOSINOPHIL 1 % (0-4); LYMPHOCYTE 15 % (20.0-51.0); MYELOCYTE 1 % (0-0); NEUTROPHILS 67 % (42.0-75.2); NUCLEATED RED BLOOD CELL 1 (0-6)
[2018-11-29 09:21] LABS: ANISOCYTOSIS 1+; HYPOCHROMIA 2+; PLATELET ESTIMATE NORMAL (NORMAL)
--- NOTE | 2018-11-29 10:46 | NUR ---
Pt's bowels still aren't clear. Given fleet enema at this time.
--- NOTE | 2018-11-29 12:39 | NUR ---
Pt is having dark black, liquid bowel movements. Given additional eneman
--- NOTE | 2018-11-29 14:43 | NUR ---
Pt continues having large amounts of liquid stool that are dark in color. benjamin Mehta RN and Dr. Eladia Lam, transportation staff, here to take pt to OR.
--- NOTE | 2018-11-29 14:52 | NUR ---
SW provided updates to Ramona Broussard.
--- NOTE | 2018-11-29 16:00 | NUR ---
Pt returned from pacu. She is awake and alert. She is able to transfer from the cart to the bed with assist. Multiple family members at bedside.
[2018-11-30 04:44] VITALS: BP 129/57; PULSE 92; TEMP 98.4
--- NOTE | 2018-11-30 06:57 | NUR ---
Report given to KAROLINE Peters. CDA
[2018-11-30 07:13] LABS: HEMATOCRIT 18.4 % (37.0-47.0); HEMOGLOBIN 5.7 g/dl (12.5-16.0)
--- NOTE | 2018-11-30 08:30 | NUR ---
Patient resting in bed with at bedside upon entry and finishing breakfast. Patient is A&O, denies SOB, palpitations, N/V, numbness/tingling. Lung sounds are diminished in all weiner. Patient ambulates to chair or bedside commode with assist but hasn't moved around much. When in chair or bed, patient favors left side, leaning with head. potassium level came back 2.4, will be addressed with hospitalist.
[2018-11-30 08:33] VITALS: BP 116/94; PULSE 91; TEMP 98.3
[2018-11-30 11:25] VITALS: BP 113/50; PULSE 88; TEMP 98.7
--- NOTE | 2018-11-30 12:38 | NUR ---
Hospitalist visited with patient, discussed PICC line placement, decreased K+ and need for IV potassium, and IVC filter. Patient doing well otherwise. Patient sitting in chair with at bedside and waiting for lunch.
--- NOTE | 2018-11-30 13:30 | NUR ---
Patient received PICC line, no complications. Patient denies complaints or questions. patient was rating pain at 9 prior to placing PICC, received percocet. Patient moans when moving and states pain in legs, mostly left. Needs assistance moving.
--- NOTE | 2018-11-30 15:11 | NUR ---
SW updated Ramona with [facility] and faxed updates.
[2018-11-30 16:07] VITALS: BP 103/52; PULSE 89; TEMP 98.4
--- NOTE | 2018-11-30 18:06 | NUR ---
Patient has had an eventful day with and family at bedside most of the day. Patient has tolerated PO meds with applesauce, larger pills crushed. patient started IV K+. Richa placed PICC line at 1330, patient had no complaints or complications. patient has very little appetite, does like the Ensure. States legs hurt, has hard time rating the pain. Some leg pain is chronic and patient is on percocet q4. Family has agreed to IVC filter and will also have small bowel series on Monday. Questions have been answered and remains at bedside.
[2018-11-30 19:17] VITALS: BP 113/59; PULSE 94; TEMP 98.6
--- NOTE | 2018-11-30 20:45 | NUR ---
Shift assessment complete. Pt resting in bed, awake, alert, oriented to self only. at bedside. Pt c/o chronic pain to BLE; will give PRN pain med c HS meds per pt/hu request. Pt denies any other c/o. PICC noted to R upper arm, patent c good blood return. O2 per NC. Tele in place. Pt/hu deny further needsa at this time. Call light in reach, bed alarm on.
[2018-12-01 01:51] VITALS: BP 135/55; PULSE 84; TEMP 98.6
--- NOTE | 2018-12-01 06:55 | NUR ---
Pt resting in bed, condition unchanged. Pt rested well this shift c few needs. Hu remains at bedside. Pain well controlled c PRN pain med upon request. No needs at this time. Call light in reach, bed alarm on. Bedside shift report given to Vivien RAMEY to assume pt cares.
[2018-12-01 07:42] LABS: MAGNESIUM 2.2 mg/dL (1.6-2.3); POTASSIUM 3.7 mmol/L (3.4-5.0)
[2018-12-01 07:50] LABS: HEMATOCRIT 19.4 % (37.0-47.0); HEMOGLOBIN 5.8 g/dl (12.5-16.0)
[2018-12-01 08:09] VITALS: BP 127/67; PULSE 84; TEMP 98.5
--- NOTE | 2018-12-01 10:02 | NUR ---
Patient sitting up in bed, starting to eat breakfast. Alert this am. Slept well first part of my shift. Her supportive spouse at bedside. We reviewed H&H & K+ lab results. Patient denies pain this am. Picc to int to rue. Vss on O2. Will monitor closely.
--- NOTE | 2018-12-01 10:48 | NUR ---
Kathy sitting up in chair. Worked with therapy. Pain now elevated. one tab percocet per her request. Karthik brown
[2018-12-01 12:12] VITALS: BP 103/54; PULSE 74; PULSE 97; TEMP 98
[2018-12-01 15:52] VITALS: BP 122/59; PULSE 86; TEMP 98.3
--- NOTE | 2018-12-01 16:52 | NUR ---
Patient resting in bed. Her sister & niece at attentive at bedside. Percocet for pain per request pain continues to her left thigh/femer. Patient has had minimal needs thoughout the day.
--- NOTE | 2018-12-01 18:00 | NUR ---
Pt denies needs, dinner is ordered, call light in reach adn fmaily at bedside
--- NOTE | 2018-12-01 19:01 | NUR ---
Report given to Karen RAMEY, pt denies needs, 100% dinner eaten, no further needs
--- NOTE | 2018-12-01 19:31 | NUR ---
Shift assessment complete. Pt resting in bed, awake, alert, oriented to self only c persistant confused statements, remains able to communicate needs. Cooperative c cares. Hu at bedside, assisting c cares. Pt c/o continued pain to bilat legs; PRN pain medical sociologist per pt request. Pt denies any other needs. O2 per NC. PICC noted to R upper arm, patent c good blood return. Pt/hu deny further needs. Call light in reach, will monitor.
[2018-12-01 19:34] VITALS: BP 113/64; PULSE 98; TEMP 97.8
[2018-12-01 23:17] VITALS: BP 90/45; PULSE 125; TEMP 98.4
[2018-12-01 23:56] LABS: CREATININE, serum 0.62 mg/dL (0.52-1.25); POTASSIUM 5.1 mmol/L (3.4-5.0)
[2018-12-02 00:17] VITALS: BP 100/54; PULSE 118
[2018-12-02 04:39] VITALS: BP 121/66; PULSE 83; TEMP 98.3
[2018-12-02 07:26] LABS: HEMATOCRIT 18.7 % (37.0-47.0); HEMOGLOBIN 5.5 g/dl (12.5-16.0)
[2018-12-02 08:08] VITALS: BP 128/42; PULSE 70; TEMP 97.8
--- NOTE | 2018-12-02 09:57 | NUR ---
Assessment completed, alert/disoriented, vital signs stable, reports legs "really hurt" and has requested Percocet/ I will give 1 tablet at 1000, her hemaglobin has dropped to 5.5 and I have notified the , heart RRR/ distal pulses are palpable, lungs CTA/ no resp.difficulty noted, at bedside, denies other needs at this time
[2018-12-02 11:17] VITALS: BP 113/39; PULSE 90; TEMP 97.7
--- NOTE | 2018-12-02 14:15 | NUR ---
putty and patch worker faxed medical updates to [facility] ([phone]) including face sheet, progress notes, and medications.
[2018-12-02 16:09] VITALS: BP 100/58; PULSE 77; TEMP 97.8
--- NOTE | 2018-12-02 20:00 | NUR ---
Shift assessment complete. Pt resting in bed, awake, a&o but c frequent confused statements. Pt c/o continued ch bilat leg pain; PRN pain new media strategist. Pt denies any other c/o. PICC noted to R upper arm, patent c good blood return. O2 per NC. Tele in place. Pt denies further needs. Hu at bedside. Call light in reach, bed alarm on. Will monitor.
[2018-12-02 20:53] VITALS: BP 140/74; PULSE 96; TEMP 97.7
[2018-12-03 02:02] VITALS: BP 132/67; PULSE 95; TEMP 98
[2018-12-03 06:09] LABS: HEMATOCRIT 18.6 % (37.0-47.0); HEMOGLOBIN 5.5 g/dl (12.5-16.0)
[2018-12-03 06:11] LABS: INR 1.1 (0.8-3.0); PROTHROMBIN TIME 12.8 SECONDS (9.7-12.8)
--- NOTE | 2018-12-03 06:55 | NUR ---
Pt resting in bed, condition unchanged. Pt has rested well this shift c few needs. Pain well controlled c PRN pain remote medical coder x3 doses per pt request. Hu remains at bedside. Pt/hu s needs. Bedside shift report given to Patricia RAMEY to assume pt cares.
--- NOTE | 2018-12-03 07:05 | NUR ---
Received report, patient is observed sleeping on left side, respirations are even and non labored. is at bedsie and voices no needs at this time. Call light is within reach.
[2018-12-03 07:55] VITALS: BP 128/64; PULSE 92; TEMP 98.2
[2018-12-03 08:42] VITALS: BP 157/80; PULSE 88
--- NOTE | 2018-12-03 08:43 | NUR ---
ALL SEDATION MEDICATIONS WILL BE GIVEN WITH VERBAL ORDER FROM MD STEPHENSON DURING PROCEDURE. SEE MERGE FOR ADMIN TIMES. SEE MERGE FOR RASS/MODERATE SEDATION ASSESSMENTS DURING AND POST PROCEDURE.
[2018-12-03 10:43] VITALS: BP 141/63; PULSE 99; TEMP 98.1
--- NOTE | 2018-12-03 11:06 | NUR ---
SW attended clinical rounds. The patient had a IVC Filter placed today and a small bowel series is planned for today, 12/03. [facility] contacted and faxed updates to Iman at [facility]. SW to continue to follow.
[2018-12-03 16:05] VITALS: BP 111/60; PULSE 88; TEMP 98.2
--- NOTE | 2018-12-03 19:53 | NUR ---
Shift assessment complete. Pt resting in bed, awake, a&o but c frequent confused/forgetfull statements. Pt reports continued c/o chronic leg pain; PRN pain med huynh per pt req. Pt denies any other c/o. Portacath noted to R upper chest; patent c good blood return. O2 per NC. Tele in place. Hu remains at bedside to assist c cares. Pt/hu deny needs at this time. Call light in reach, bed alarm on. Will monitor.
[2018-12-03 20:05] VITALS: BP 98/48; PULSE 89; TEMP 97.9
[2018-12-04 00:32] VITALS: BP 121/60; PULSE 99; TEMP 97.4
[2018-12-04 04:23] VITALS: BP 105/58; PULSE 86; TEMP 97.5
[2018-12-04 05:40] LABS: HEMATOCRIT 19.5 % (37.0-47.0); HEMOGLOBIN 5.7 g/dl (12.5-16.0)
--- NOTE | 2018-12-04 06:40 | NUR ---
Pt resting in bed, condition unchanged. Pt has rested well int this shift c few needs. Pain well controlled c PRN pain med upon request. Pt s needs at this time. at bedside, call light in reach. Bedside shift report given to Patricia RAMEY to assume pt cares.
--- NOTE | 2018-12-04 06:50 | NUR ---
Patient is resting quietly in bed with eyes closed. is at bedside and informed of change of shift. No needs verbalized. Has call light in reach.
[2018-12-04 08:02] LABS: INR 1.1 (0.8-3.0); PROTHROMBIN TIME 12.8 SECONDS (9.7-12.8)
--- NOTE | 2018-12-04 13:55 | NUR ---
Iman, at [facility], reports that they may not be able to hold the patient's bed anymore, but will still continue to follow. She states that they still may have a bed for her by the end of the week. ACACIA to inform the patient and patient's . ACACIA student faxed updates to [facility].
[2018-12-04 19:56] VITALS: BP 121/45; BP 125/58; PULSE 89; PULSE 96; TEMP 97.8; TEMP 98.6
[2018-12-04 23:31] VITALS: BP 134/64; PULSE 85; TEMP 97.9
--- NOTE | 2018-12-04 23:53 | NUR ---
Shift assessment complete. Pt resting in bed, awake, a&o c frequent confused statements. Pt reports continued chronic pain to bilat legs; PRN pain med spa manager per pt request. PICC noted to R upper arm, patent c good blood return. O2 per NC. Tele in place. Pt denies further needs. Call light in reach, will monitor.
[2018-12-05 03:41] VITALS: BP 125/63; PULSE 82; TEMP 98
[2018-12-05 05:30] LABS: MEAN CELL VOLUME 107 fl (80.0-100.0); MEAN CORPUSCULAR HGB CONC 29 g/dl (33.0-37.0); MEAN PLATELET VOLUME 11.2 fl (7.4-10.4); PLATELET COUNT 291 K/mm3 (130-400); RED BLOOD COUNT 1.82 M/mm3 (4.10-5.30); REDCELL DISTRIBUTION WIDTH-CV 21.1 % (11.5-14.5)
[2018-12-05 05:33] LABS: INR 1.1 (0.8-3.0)
[2018-12-05 05:44] LABS: HEMATOCRIT 19.4 % (37.0-47.0); HEMOGLOBIN 5.6 g/dl (12.5-16.0); MEAN CORPUSCULAR HEMOGLOBIN 31 pg (27.0-31.0)
[2018-12-05 05:50] LABS: CALCIUM 8.6 mg/dL (8.4-10.2); CREATININE, serum 0.66 mg/dL (0.52-1.25); MAGNESIUM 1.9 mg/dL (1.6-2.3); POTASSIUM 3.6 mmol/L (3.4-5.0)
--- NOTE | 2018-12-05 07:15 | NUR ---
Report received from KAROLINE Jones. Pt in bed resting with asleep at bedside. Denies needs, will continue to monitor.
[2018-12-05 07:38] LABS: ANISOCYTOSIS 2+; BAND 3 % (0-10); EOSINOPHIL 1 % (0-4); HYPOCHROMIA 1+; LYMPHOCYTE 28 % (20.0-51.0); METAMYELOCYTE 2 % (0-0); MYELOCYTE 2 % (0-0); NEUTROPHILS 59 % (42.0-75.2); NUCLEATED RED BLOOD CELL 1 (0-6); PLATELET ESTIMATE NORMAL (NORMAL)
[2018-12-05 07:39] LABS: POLYCHROMASIA 1+; TOXIC GRANULATION PRESENT
[2018-12-05 07:40] VITALS: BP 122/61; PULSE 82; TEMP 98
[2018-12-05 09:04] LABS: PATHOLOGY DIFF REVIEW OK +
--- NOTE | 2018-12-05 09:19 | NUR ---
Assessment charted. Pt up in chair resting upon entry. Awakens easily upon entry, able to take meds with applesauce, crushed potassium pills per request. Pt has minimal pain in legs bilaterally. Wants to get showered today. remains at bedside. Will continue to monitor.
[2018-12-05] MEDS ORDERED: PERCOCET 325 MG1 TA2 PO (09:58)
[2018-12-05] MEDS ORDERED: CARAFATE S1 GM/10 ML PO (10:00)
[2018-12-05] MEDS ORDERED: K-TAB20 PO (10:00)
[2018-12-05] MEDS ORDERED: PREDNISONE 5MG5 MG PO (10:00)
[2018-12-05] MEDS ORDERED: FERROUS GL325 MG/TAB PO (10:03)
[2018-12-05] MEDS ORDERED: MAG-OX 400400 MG/TAB PO (10:10)
[2018-12-05 10:55] VITALS: BP 114/56; PULSE 86; TEMP 98.3
--- NOTE | 2018-12-05 13:18 | NUR ---
Iman, at [facility], reports that they do have a room available for the patient and that they can still accept her. The patient is to discharge today, 12/05, to [facility] for a skilled stay. Transportation was set for around 1430, via [facility]. ACACIA student informed the patient and patient's . ACACIA student also presented and explained the IM form to the patient's . The patient's verbalized understanding, signed, and he was provided a copy. No additional needs at this time.
[2018-12-05 13:54] VITALS: BP 114/56; PULSE 86; TEMP 98.3
--- NOTE | 2018-12-05 14:35 | NUR ---
Report called to Ned house at [facility]. Pt ready for discharge. Family at bedside will let [facility] staff escort out with all belongngs. Going with PICC. Criteria met.
--- NOTE | 2018-12-05 14:53 | NUR ---
Changed PICC caps. [facility] w/c escorted out, took all belongings, criteria met.
== END 2018-12-05 15:04 | DRG 166 ==
LOC: COL.ER 19:11 → MEDICAL 22:30 → EDBEDREQ 23:07 → MEDICAL 23:59
PROVIDERS: Emergency Medicine; Hospitalist; Nurse Practitioner; Nurse Practitioner Family; Physician Assistant; ADMIT Family Medicine
PROC: 0DJ08ZZ Inspection of Upper Intestinal Tract, Via Natural or Artificial Opening Endoscopic (ICD-10-PCS; 2018-11-27)
PROC: 0DJD8ZZ Inspection of Lower Intestinal Tract, Via Natural or Artificial Opening Endoscopic (ICD-10-PCS; 2018-11-29)
PROC: 06H03DZ Insertion of Intraluminal Device into Inferior Vena Cava, Percutaneous Approach (ICD-10-PCS; principal; 2018-12-03)
DX: I26.99 Other pulmonary embolism without acute cor pulmonale (principal); J96.01 Acute respiratory failure with hypoxia; K57.31 Diverticulosis of large intestine without perforation or abscess with bleeding; I82.412 Acute embolism and thrombosis of left femoral vein; I82.812 Embolism and thrombosis of superficial veins of left lower extremity; Z66 Do not resuscitate; D62 Acute posthemorrhagic anemia; E44.0 Moderate protein-calorie malnutrition; J90 Pleural effusion, not elsewhere classified; Z68.26 Body mass index [BMI] 26.0-26.9, adult; E87.6 Hypokalemia; E83.42 Hypomagnesemia; I10 Essential (primary) hypertension; F03.90 Unspecified dementia, unspecified severity, without behavioral disturbance, psychotic disturbance, mood disturbance, and anxiety; M79.7 Fibromyalgia; G89.4 Chronic pain syndrome; Z86.73 Personal history of transient ischemic attack (TIA), and cerebral infarction without residual deficits; M06.9 Rheumatoid arthritis, unspecified; Z87.891 Personal history of nicotine dependence; M81.0 Age-related osteoporosis without current pathological fracture; R33.9 Retention of urine, unspecified; D64.9 Anemia, unspecified; K21.0 Gastro-esophageal reflux disease with esophagitis; D12.2 Benign neoplasm of ascending colon
CPT/HCPCS: 99222-AI; 99231-AI; 99232-AI; 99233-AI; 99239; A9284; C1751; C1769; C1880; C9113; G0378; J0881; J1644; J1650; J2704; J2916; J3475; J3480; J7030; J7040; J7120; J7512; Q9967

== ENCOUNTER 2019-06-14 08:50 | Outpatient (CLI) | payer MEDICARE ==
[~2019-06-14] VITALS: Ht 160 cm; Wt 56.9 kg
[2019-06-14] VITALS (7 sets, daily range): BP systolic 142–176; BP diastolic 72–88; PULSE 58–71; TEMP 98.3
[~2019-06-14 08:50] MED LIST changes: +CARAFATE S1 GM/10 ML PO; +CYMBALTA 60MG60 MG PO; +FERROUS GL325 MG/TAB PO; +K-TAB20 PO; +MAG-OX 400400 MG/TAB PO
--- NOTE | 2019-06-14 09:51 | NUR ---
Initial visit; Patient thanked Haulage Engine Operator for looking in on her and wishing her well. Patient had prayed with prior to Haulage Engine Operator's arrival.
--- NOTE | 2019-06-14 10:51 | NUR ---
SEE MERGE DOCUMENTATION FOR MEDICATION ADMINISTRATION TIMES AND INTRA/POST PROCEDURE SEDATION ASSESSMENTS.
--- NOTE | 2019-06-14 11:30 | NUR ---
Right IJ dressing CD&I. Denies pain at this time. VSS.
--- NOTE | 2019-06-14 12:27 | NUR ---
INT discontinued intact. Discharge instructions given.
--- NOTE | 2019-06-14 12:41 | NUR ---
Transferred to private car by amanuel
== END 2019-06-14 12:42 | disposition home or self-care (01) ==
LOC: COL.CAR 08:50
DX: Z86.718 Personal history of other venous thrombosis and embolism (principal); Z90.710 Acquired absence of both cervix and uterus; I10 Essential (primary) hypertension; D64.9 Anemia, unspecified; F03.90 Unspecified dementia, unspecified severity, without behavioral disturbance, psychotic disturbance, mood disturbance, and anxiety; K21.9 Gastro-esophageal reflux disease without esophagitis; M81.0 Age-related osteoporosis without current pathological fracture; G89.29 Other chronic pain; M79.7 Fibromyalgia; K59.00 Constipation, unspecified; M06.9 Rheumatoid arthritis, unspecified; Z79.01 Long term (current) use of anticoagulants; Z87.891 Personal history of nicotine dependence; Z79.52 Long term (current) use of systemic steroids; Z86.711 Personal history of pulmonary embolism; Z88.1 Allergy status to other antibiotic agents; Z88.8 Allergy status to other drugs, medicaments and biological substances; E27.3 Drug-induced adrenocortical insufficiency; Z82.61 Family history of arthritis; Z83.3 Family history of diabetes mellitus; Z80.9 Family history of malignant neoplasm, unspecified; Z90.49 Acquired absence of other specified parts of digestive tract; Z96.651 Presence of right artificial knee joint
CPT/HCPCS: J1644; J2250; J3010; J7120; Q9967

== ENCOUNTER 2019-07-08 06:02 | Emergency (ER) | payer MEDICARE ==
[~2019-07-08] VITALS: Ht 160 cm; Wt 58.2 kg
[2019-07-08 06:04] VITALS: TEMP 98.2
[2019-07-08] MEDS ORDERED: PREDNISONE10 MG PO (10:07)
[2019-07-08 11:14] VITALS: BP 136/94; PULSE 94
== END 2019-07-08 11:17 | disposition home or self-care (01) ==
LOC: COL.ER 06:02
DX: M54.42 Lumbago with sciatica, left side (principal)
CPT/HCPCS: J1885; J7512

== ENCOUNTER → 2019-07-18 | Outpatient (CLI) | payer MEDICARE ==
[~2019-07-18] MED LIST changes: +PREDNISONE10 MG PO
== END ==
LOC: MC.RAD 13:02
DX: Z12.31 Encounter for screening mammogram for malignant neoplasm of breast (principal)

== ENCOUNTER 2020-05-29 02:50 | Emergency (ER) | payer MEDICARE ==
[~2020-05-29] VITALS: Ht 160 cm; Wt 66.4 kg
[2020-05-29 02:52] VITALS: TEMP 98.3
[2020-05-29] MEDS ORDERED: PREDNISONE 5MG5 MG PO (03:17)
[2020-05-29 03:20] LABS: BASO % 0.6 % (0.0-2.0); EOS # 0.3 (0.0-0.7); EOS % 3.9 % (0-4.0); GRAN # 2.5 (1.4-6.5); LYMPH # 2.8 (1.2-3.4); LYMPH % 42.9 % (20.0-51.0); MEAN CELL VOLUME 100 fl (80.0-100.0); MEAN CORPUSCULAR HEMOGLOBIN 31 pg (27.0-31.0); MEAN CORPUSCULAR HGB CONC 31 g/dl (33.0-37.0); MEAN PLATELET VOLUME 9.6 fl (7.4-10.4); MONO # 0.8 (0.1-0.6); MONO % 12.7 % (1.7-9.3); PLATELET COUNT 238 K/mm3 (130-400); RED BLOOD COUNT 3.53 M/mm3 (4.10-5.30); REDCELL DISTRIBUTION WIDTH-CV 15.4 % (11.5-14.5)
[2020-05-29 03:21] LABS: HEMATOCRIT 35.2 % (37.0-47.0)
[2020-05-29] MEDS ORDERED: LIQUID CALCIUM1 SG3 PO (03:24)
[2020-05-29] MEDS ORDERED: VITAMIND3 5000 PO (03:25)
[2020-05-29] MEDS ORDERED: B COMPLEX & B121 TAB (03:25)
[2020-05-29 03:26] LABS: ALBUMIN 3.4 gm/dL (3.5-5.0); BILIRUBIN,TOTAL 0.5 mg/dL (0.0-1.0); CALCIUM 8.8 mg/dL (8.4-10.2); CREATININE, serum 0.69 (0.52-1.25); POTASSIUM 3.5 mmol/L (3.4-5.0); TOTAL PROTEIN 6.1 gm/dL (6.4-8.2)
[2020-05-29 05:56] VITALS: BP 154/94; PULSE 87
== END 2020-05-29 05:56 | disposition home or self-care (01) ==
LOC: COL.ER 02:50
PROVIDERS: Emergency Medicine
DX: S00.93XA Contusion of unspecified part of head, initial encounter (principal); M06.9 Rheumatoid arthritis, unspecified; W01.198A Fall on same level from slipping, tripping and stumbling with subsequent striking against other object, initial encounter; Y92.091 Bathroom in other non-institutional residence as the place of occurrence of the external cause

== ENCOUNTER 2020-08-01 02:33 | Emergency (ER) | payer MEDICARE ==
[~2020-08-01 02:33] MED LIST changes: +B COMPLEX & B121 TAB; +VITAMIND3 5000 PO
[2020-08-01 02:36] VITALS: TEMP 98.3
[2020-08-01 03:32] LABS: BASO % 0.6 % (0.0-2.0); EOS # 0.2 (0.0-0.7); EOS % 3.6 % (0-4.0); GRAN # 3.3 (1.4-6.5); GRAN % 50.2 % (42.2-75.2); HEMOGLOBIN 11.3 g/dl (12.5-16.0); LYMPH # 2.1 (1.2-3.4); LYMPH % 31.7 % (20.0-51.0); MEAN CELL VOLUME 100 fl (80.0-100.0); MEAN CORPUSCULAR HEMOGLOBIN 31 pg (27.0-31.0); MEAN CORPUSCULAR HGB CONC 31 g/dl (33.0-37.0); MEAN PLATELET VOLUME 10.2 fl (7.4-10.4); MONO # 0.9 (0.1-0.6); MONO % 13.6 % (1.7-9.3); PLATELET COUNT 231 K/mm3 (130-400); RED BLOOD COUNT 3.65 M/mm3 (4.10-5.30); REDCELL DISTRIBUTION WIDTH-CV 15.5 % (11.5-14.5)
[2020-08-01 03:36] LABS: HEMATOCRIT 36.5 % (37.0-47.0)
[2020-08-01 03:42] LABS: ALANINE AMINOTRANSFERASE 10 U/L (4-34); ALBUMIN 3.6 gm/dL (3.5-5.0); ALKALINE PHOSPHATASE 76 U/L (50-136); ANION GAP 6 mmol/L (7-16); AST,SGOT 24 U/L (15-37); BILIRUBIN,TOTAL 0.7 mg/dL (0.0-1.0); BLOOD UREA NITROGEN 10 mg/dL (7-17); CALCIUM 8.6 mg/dL (8.4-10.2); CARBON DIOXIDE 28 mmol/L (22-30); CHLORIDE 108 mmol/L (98-107); CREATININE, serum 0.61 (0.52-1.25); GLUCOSE 95 mg/dL (74-106); POTASSIUM 3.2 mmol/L (3.4-5.0); SODIUM 141 mmol/L (137-145); TOTAL PROTEIN 6.7 gm/dL (6.4-8.2)
[2020-08-01 03:44] LABS: INR 1.1 (0.8-3.0); PROTHROMBIN TIME 11.9 SECONDS (9.7-12.8)
[2020-08-01 03:54] LABS: TROPONIN-I < 0.012 ng/mL (0.000-0.035)
[2020-08-01 05:00] VITALS: BP 151/87; PULSE 75
== END 2020-08-01 05:12 | disposition home or self-care (01) ==
LOC: COL.ER 02:33
PROVIDERS: Emergency Medicine
DX: S70.01XA Contusion of right hip, initial encounter (principal); Z86.73 Personal history of transient ischemic attack (TIA), and cerebral infarction without residual deficits; Z86.718 Personal history of other venous thrombosis and embolism; Z86.711 Personal history of pulmonary embolism; Z88.8 Allergy status to other drugs, medicaments and biological substances; Z79.52 Long term (current) use of systemic steroids; W19.XXXA Unspecified fall, initial encounter; Y92.009 Unspecified place in unspecified non-institutional (private) residence as the place of occurrence of the external cause

== ENCOUNTER 2021-09-06 11:25 | Emergency (ER) | payer MEDICARE ==
[~2021-09-06] VITALS: Ht 160 cm; Wt 72.7 kg
[2021-09-06 11:55] VITALS: TEMP 97.7
[2021-09-06 12:25] LABS: BASO # 0.1 K/mm3 (0.0-0.2); BASO % 0.6 % (0.0-2.0); EOS # 0.6 K/mm3 (0.0-0.7); EOS % 6.3 % (0.0-4.0); GRAN # 5.4 K/mm3 (1.4-6.5); GRAN % 60.1 % (42.2-75.2); HEMOGLOBIN 11.2 g/dl (12.5-16.0); LYMPH # 1.6 K/mm3 (1.2-3.4); LYMPH % 17.5 % (20.0-51.0); MEAN CELL VOLUME 98 fl (80.0-100.0); MEAN CORPUSCULAR HEMOGLOBIN 30 pg (27-31); MEAN CORPUSCULAR HGB CONC 31 g/dl (33.0-37.0); MEAN PLATELET VOLUME 10.5 fl (7.4-10.4); MONO # 1.3 K/mm3 (0.1-0.6); MONO % 14.3 % (1.7-9.3); PLATELET COUNT 275 K/mm3 (130-400); RED BLOOD COUNT 3.72 M/mm3 (4.10-5.30); REDCELL DISTRIBUTION WIDTH-CV 16.5 % (11.5-14.5)
[2021-09-06 12:27] LABS: HEMATOCRIT 36.3 % (37.0-47.0)
[2021-09-06 12:39] LABS: ALANINE AMINOTRANSFERASE 24 U/L (0-55); ALKALINE PHOSPHATASE 123 U/L (40-150); ANION GAP 11 mmol/L (7-16); AST,SGOT 27 U/L (5-34); BILIRUBIN,TOTAL 0.4 mg/dL (0.2-1.2); BLOOD UREA NITROGEN 11 mg/dL (10-20); C-REACTIVE PROTEIN 4.38 mg/dL (0.00-0.50); CALCIUM 8.8 mg/dL (8.4-10.2); CARBON DIOXIDE 24 mmol/L (23-31); CHLORIDE 107 mmol/L (98-107); CREATININE, serum 0.76 mg/dL (0.57-1.11); GLUCOSE 109 mg/dL (70-99); LIPASE < 10 U/L (8-78); POTASSIUM 3.7 mmol/L (3.5-4.5); SODIUM 142 mmol/L (136-145); TOTAL PROTEIN 6.5 gm/dL (6.2-8.1)
[2021-09-06] MEDS ORDERED: DULCOLAX STOOL100 MG PO (12:50)
[2021-09-06 13:17] VITALS: BP 159/91; PULSE 93
== END 2021-09-06 13:21 | disposition home or self-care (01) ==
LOC: COL.ER 11:25
PROVIDERS: Nurse Practitioner Primary Care
DX: K64.4 Residual hemorrhoidal skin tags (principal); Z90.49 Acquired absence of other specified parts of digestive tract; Z86.711 Personal history of pulmonary embolism

== ENCOUNTER 2021-12-12 20:16 | Emergency (ER) | payer MEDICARE, MEDICAID ==
[~2021-12-12] VITALS: Ht 160 cm; Wt 86.4 kg
[~2021-12-12 20:16] MED LIST changes: +DULCOLAX STOOL100 MG PO
[2021-12-12 20:25] VITALS: TEMP 98.1
[2021-12-12 20:36] LABS: COLLECTION METHOD CLEAN CATCH
[2021-12-12 20:45] LABS: PH 7 (5-8); SQUAMOUS EPITHELIAL 0-2 /hpf (0-10); URINE APPEARANCE Hazy (CLEAR/HAZY); URINE BACTERIA None Seen /hpf (NONE SEEN); URINE BILIRUBIN Negative (NEGATIVE); URINE BLOOD Negative (NEGATIVE); URINE COLOR Yellow (YELLOW); URINE GLUCOSE Negative (NEGATIVE); URINE KETONE Negative (NEGATIVE); URINE LEUKOCYTE ESTERASE Negative (NEGATIVE); URINE NITRATE Negative (NEGATIVE); URINE PROTEIN(semi-quant) Negative (NEGATIVE); URINE RBC 0-2 /hpf (0-2); URINE UROBILINOGEN Negative (NEGATIVE)
[2021-12-12 20:53] LABS: HEMATOCRIT 40.4 % (37.0-47.0); HEMOGLOBIN 12.5 g/dl (12.5-16.0); MEAN CELL VOLUME 94 fl (80.0-100.0); MEAN CORPUSCULAR HEMOGLOBIN 29 pg (27-31); MEAN CORPUSCULAR HGB CONC 31 g/dl (33.0-37.0); PLATELET COUNT 374 K/mm3 (130-400); RED BLOOD COUNT 4.32 M/mm3 (4.10-5.30); REDCELL DISTRIBUTION WIDTH-CV 17.8 % (11.5-14.5)
[2021-12-12 20:53] LABS: TRICYCLIC ANTIDEPRESS URINE POSITIVE
[2021-12-12 21:09] LABS: ALBUMIN 3.4 gm/dL (3.4-4.8); BILIRUBIN,TOTAL 0.4 mg/dL (0.2-1.2); C-REACTIVE PROTEIN 0.41 mg/dL (0.00-0.50); CALCIUM 9.5 mg/dL (8.4-10.2); CREATININE, serum 0.75 mg/dL (0.57-1.11); POTASSIUM 4.1 mmol/L (3.5-4.5); TOTAL PROTEIN 6.9 gm/dL (6.2-8.1)
[2021-12-12 21:26] LABS: ANISOCYTOSIS 1+; HYPOCHROMIA 3+; LYMPHOCYTE 16 % (20.0-51.0); NEUTROPHILS 81 % (42.0-75.2); PLATELET ESTIMATE NORMAL (NORMAL)
[2021-12-13 10:55] VITALS: BP 159/88; PULSE 93
--- NOTE | 2021-12-13 13:10 | NUR ---
Elevated Guard received consult for patient who has a history of dementia and became combative with her at home. Patient's , [facility] is interested in forming department end finder care placement, specifically memory care. [facility] advised patient is on the wait list for [facility] and he has also toured [facility]. ACACIA contacted both [facility] and [facility] and faxed ED notes. Both facilities cannot admit today and [facility]. ACACIA faxed [facility] referrals. ACACIA followed up with patient's , [facility] who advised he does not want patient to go to a [facility] facility today and wants to review this with patient's PCP, Dr. Aguilar. [facility] plans to take patient home today with family support. Patient has Medicare [employer] (Advantage Plan) and Medicaid [employer]. ACACIA contacted Agustina Elevated Guard at Dr. Aguilar's office and provided the above update. Agustina advised their office has been trying to help secure placement for patient but so far, patient's [facility] has not been agreeable. Agustina advised [facility] was agreeable to place patient on [facility]'s waitlist and apply for Medicaid. ACACIA updated ED RN on the above. Patient will discharge home from ED with her .
== END 2021-12-13 10:55 | disposition home or self-care (01) ==
LOC: COL.ER 20:16
PROVIDERS: Family Medicine
DX: F03.90 Unspecified dementia, unspecified severity, without behavioral disturbance, psychotic disturbance, mood disturbance, and anxiety (principal); F22 Delusional disorders
CPT/HCPCS: J1630